=== PATIENT | male | born 1970 | race Caucasian/White ===

== ENCOUNTER 2016-12-25 08:36 | Day surgery (SDC) | payer OTHER ==
[~2016-12-25] VITALS: Ht 177.8 cm; Wt 84.0 kg
[~2016-12-25 08:36] MED LIST: 0.9% Sodium Chloride 1,000 ML IV SCH; CLOR3.755 PO; OXYB5TAB10 PO; Sodium Chloride LOK Flush 10 mL Syringe IV PRN; TAMS0.4C98 PO; fentaNYL-PF 50 mCg/mL 2 mL Inj IVPUSH PRN
[2016-12-25 09:15] VITALS: BP 118/77; PULSE 62; RESP 16; O2SAT 99
[2016-12-25 10:02] VITALS: BP 112/64; PULSE 65; RESP 16; O2SAT 98
[2016-12-25 10:12] VITALS: BP 106/66; PULSE 65; RESP 16; O2SAT 98
[2016-12-25 10:22] VITALS: BP 100/68; PULSE 62; RESP 16; O2SAT 100
--- NOTE | 2016-12-25 10:36 | ENDO ---
[address] [address] ENDOSCOPY PROCEDURE PATIENT: JAYJAY BILL : 1970 MR#: [id number] ADMIT: 12/25/2016 JOB ID: [id number] DATE OF SERVICE: 12/25/2016 OPERATIONS: Colonoscopy. PREOPERATIVE DIAGNOSIS(ES): Family history of colon cancer, chronic constipation. POSTOPERATIVE DIAGNOSIS(ES): Tortuous colon, otherwise normal. ANESTHESIA: Fentanyl 175 mcg, Versed 7 mg IV administered. COMPLICATIONS: None. BLOOD LOSS: Minimal. DESCRIPTION OF PROCEDURE: After risks and benefits were explained to the patient, informed consent was obtained. After anesthesia administered, a colonoscope was inserted from the rectum to the cecum. Mucosa carefully examined. Prep of the patient was excellent. After procedure was done, the scope was withdrawn and the procedure terminated. FINDINGS: Upon inspection of the anus, no masses, hemorrhoids, ulcers, or fissures were seen. Throughout the entire examination, there were no polyps, masses, or lesions. The colon was quite tortuous, otherwise normal. Retroflexion was normal. IMPRESSION: Tortuous colon, otherwise normal. RECOMMENDATIONS: Repeat colonoscopy in five years for colorectal cancer screening. Follow up with Baljeet Khan PA-C at outpatient GI clinic for chronic constipation.
== END 2016-12-25 23:59 | disposition home or self-care (01) ==
LOC: END 08:36
PROVIDERS: ATTEND Internal Medicine Gastroenterology
DX: Z12.11 Encounter for screening for malignant neoplasm of colon (principal); Z80.0 Family history of malignant neoplasm of digestive organs; Q43.8 Other specified congenital malformations of intestine; K59.00 Constipation, unspecified; F41.9 Anxiety disorder, unspecified; N32.81 Overactive bladder
CPT/HCPCS: 99153; G0105; G0500; J2250; J3010; J7030